=== PATIENT | male | born 1950 | race Caucasian/White ===

== ENCOUNTER 2020-08-05 08:59 | Observation (INO) | payer MEDICARE ==
[~2020-08-05] VITALS: Ht 182.9 cm; Wt 120.1 kg
[2020-08-05 08:35] VITALS: BP 103/72
[2020-08-05] MEDS ORDERED: TEST100V2 IM (09:01)
[2020-08-05] MEDS ORDERED: LEVO0.5P PO (09:01)
[2020-08-05] MEDS ORDERED: CABE0.5T PO (09:01)
[2020-08-05] MEDS ORDERED: LORazepam 2 MG/ML, 1ML IVPush PRN (09:30)
[2020-08-05] MEDS ORDERED: PROMETHAZINE 25 MG SUPP PR PRN (09:30)
[2020-08-05] MEDS ORDERED: hydrALAzine 20 MG/ML, 1ML IV PRN (09:30)
[2020-08-05] MEDS ORDERED: PROMETHAZINE 25 MG/ML, 1ML IVPush PRN (09:30)
[2020-08-05] MEDS ORDERED: ONDANSETRON 2MG/ML, 2ML IVPush PRN (09:30)
[2020-08-05] MEDS ORDERED: LABETALOL 5MG/ML, 20ML IV PRN (09:30)
[2020-08-05] MEDS ORDERED: HYDROmorphone 1 MG/ML, 1ML INJ IVPush PRN (09:30)
[2020-08-05] MEDS ORDERED: ACETAMINOPHEN 325 MG TABLET PO PRN (09:30)
[2020-08-05] MEDS ORDERED: METHOCARBAMOL 1,000 MG in DEXTROSE 5% 100 ML IV PRN (09:30)
[2020-08-05] MEDS ORDERED: FENTANYL PF 100 MCG/2ML ONE ×3 (09:58→12:16)
[2020-08-05] MEDS ORDERED: NEOSTIGMINE 1 MG/ML, 10ML ONE (10:50)
[2020-08-05] MEDS ORDERED: GLYCOPYRROLATE 0.2MG/1ML, 5ML ONE (10:50)
[2020-08-05] MEDS ORDERED: CEFAZOLIN 1,000 MG ONE (10:50)
[2020-08-05] MEDS ORDERED: ONDANSETRON 2MG/ML, 2ML ONE (10:50)
[2020-08-05] MEDS ORDERED: PROPOFOL 10 MG/ML, 20ML ONE (10:50)
[2020-08-05] MEDS ORDERED: SUCCINYLCHOLINE 20 MG/ML, 10ML ONE (10:50)
[2020-08-05] MEDS ORDERED: ROCURONIUM 10MG/ML,5ML ONE (10:50)
[2020-08-05] MEDS ORDERED: DEXAMETHASONE 4 MG/ML, 1ML ONE (10:50)
[2020-08-05] MEDS ORDERED: EPHEDRINE 50 MG/ML, 1ML ONE (10:51)
[2020-08-05] MEDS ORDERED: LIDOCAINE 4%, 4 ML SYR/CANN TP ONE (10:54)
[2020-08-05] MEDS ORDERED: ONDANSETRON 2MG/ML, 2ML IV PRN (11:30)
[2020-08-05] MEDS: OXYcodone 5 MG/5 ML ORAL.SOL UDC PO PRN ×2 (12:00→12:35)
[2020-08-05] MEDS ORDERED: ACETAMINOPHEN 650 MG/20.3 ML UDC ONE (12:02)
[2020-08-05] MEDS ORDERED: OXYcodone 5 MG/5 ML ORAL.SOL UDC ONE ×2 (12:02→12:33)
[2020-08-05] MEDS ORDERED: ACETAMINOPHEN 325 MG TABLET ONE (12:03)
[2020-08-05] MEDS: FENTANYL PF 100 MCG/2ML IV PRN ×2 (12:15→12:25)
[2020-08-05] MEDS ORDERED: LORazepam 2 MG/ML, 1ML ONE (12:27)
[2020-08-05] MEDS ORDERED: HYDROmorphone 1 MG/ML, 1ML INJ ONE (12:53)
[2020-08-05] MEDS ORDERED: PHEN-418 PO (14:03)
[2020-08-05] MEDS ORDERED: HYDR-3240 PO (14:03)
[2020-08-05] MEDS: HYDROcodone/APAP 5/325 TABLET PO PRN ×2 (14:19→20:03)
[2020-08-05 14:22] VITALS: BP 143/87
[2020-08-05] MEDS: PHENAZOPYRIDINE 200 MG TABLET PO SCH ×2 (16:23→20:03)
[2020-08-05] MEDS: TAMSULOSIN 0.4 MG CAP.ER.24H PO SCH (16:24)
[2020-08-05] MEDS ORDERED: OPIUM/BELLADONNA SUPP.RECT 16.2-60 MG PR PRN ×2 (16:30→21:30)
[2020-08-05 20:15] VITALS: BP 130/79
[2020-08-05] MEDS ORDERED: HYDROmorphone 1 MG/ML, 1ML INJ IV PRN (21:30)
[2020-08-05] MEDS: D5%-0.45NACL+KCL 20MEQ 1,000 ML IV SCH (22:57)
[2020-08-06 00:04] VITALS: BP 125/77
[2020-08-06] MEDS: HYDROcodone/APAP 5/325 TABLET PO PRN ×4 (02:06→16:43)
[2020-08-06 04:41] VITALS: BP 101/61
[2020-08-06] MEDS ORDERED: LEVOTHYROXINE 137 MCG TABLET PO SCH (06:00)
[2020-08-06 08:07] VITALS: BP 110/74
[2020-08-06] MEDS: PHENAZOPYRIDINE 200 MG TABLET PO SCH ×2 (08:14→16:43)
[2020-08-06] MEDS: TAMSULOSIN 0.4 MG CAP.ER.24H PO SCH (08:14)
[2020-08-06] MEDS: D5%-0.45NACL+KCL 20MEQ 1,000 ML IV SCH ×2 (09:04→17:30)
[2020-08-06] MEDS ORDERED: TAMS-11 PO (09:18)
[2020-08-06 13:20] VITALS: BP 105/65
[2020-08-06] MEDS ORDERED: TAMSULOSIN 0.4 MG CAP.ER.24H PO ONE (17:30)
[2020-08-21] MEDS ORDERED: LEVO137T3 PO (18:13)
[2020-08-23] MEDS ORDERED: CABE0.5T PO (16:24)
[2020-08-23] MEDS ORDERED: TEST200V3 INJ (16:24)
[2020-08-29] MEDS ORDERED: ERTA1VIA4 IV (11:12)
[2020-08-29] MEDS ORDERED: TAMS-11 PO (11:12)
== END 2020-08-06 18:35 | disposition home or self-care (01) ==
LOC: OR 08:59 → 4NE 09:18 → OR 21:15 → 4NE 21:30
PROVIDERS: ADMIT Urology; ATTEND Urology
DX: N20.2 Calculus of kidney with calculus of ureter (principal); Z20.828 Contact with and (suspected) exposure to other viral communicable diseases; N13.30 Unspecified hydronephrosis; N28.9 Disorder of kidney and ureter, unspecified; E29.1 Testicular hypofunction; N40.1 Benign prostatic hyperplasia with lower urinary tract symptoms; I44.7 Left bundle-branch block, unspecified; Z79.899 Other long term (current) drug therapy; Z85.850 Personal history of malignant neoplasm of thyroid; Z85.828 Personal history of other malignant neoplasm of skin; Z87.442 Personal history of urinary calculi
CPT/HCPCS: 52356; 76000; 82360; 87635; 88300; 93005; 96360; 96361; C1769; C2617; G0378; J0690; J1100; J1170; J2060; J2405; J2704; J2710; J3010; J3480; J0330

== ENCOUNTER → 2020-09-14 | Outpatient (CLI) | payer MEDICARE ==
[~2020-09-14] MED LIST: CABE0.5T PO; ERTA1VIA4 IV; HYDR-3240 PO; LEVO0.5P PO; LEVO137T3 PO; PHEN-418 PO; TAMS-11 PO; TEST100V2 IM; TEST200V3 INJ
== END | disposition home or self-care (01) ==
LOC: STAR 12:41
PROVIDERS: ATTEND Anesthesiology
DX: Z20.828 Contact with and (suspected) exposure to other viral communicable diseases (principal)
CPT/HCPCS: 87635

== ENCOUNTER 2020-09-18 12:49 | Day surgery (SDC) | payer MEDICARE ==
[~2020-09-18] VITALS: Ht 182.9 cm; Wt 108.1 kg
[~2020-09-18 12:49] MED LIST changes: +FENTANYL PF 250 MCG/5ML ONE; +HYDR-1067 PO; -HYDR-3240 PO
[2020-09-18] MEDS ORDERED: LACTATED RINGERS 1,000 ML IV SCH (13:00)
[2020-09-18] MEDS ORDERED: CHLORHEXIDINE 15 ML UDC ONE (13:12)
[2020-09-18 13:22] VITALS: BP 102/72
[2020-09-18] MEDS ORDERED: METOCLOPRAMIDE 5 MG/ML, 2ML IVPush PRN (13:30)
[2020-09-18] MEDS ORDERED: HYDROmorphone 1 MG/ML, 1ML INJ IVPush PRN (13:30)
[2020-09-18] MEDS ORDERED: HALOPERIDOL 5 MG/ML IV PRN (13:30)
[2020-09-18] MEDS ORDERED: OXYcodone 5 MG/5 ML ORAL.SOL UDC PO PRN (13:30)
[2020-09-18] MEDS ORDERED: DIAZEPAM 5 MG/ML, 2ML IVPush PRN (13:30)
[2020-09-18] MEDS ORDERED: ACETAMINOPHEN 325 MG TABLET PO PRN (13:30)
[2020-09-18] MEDS ORDERED: ONDANSETRON 2MG/ML, 2ML IVPush PRN (13:30)
[2020-09-18] MEDS ORDERED: hydrALAzine 20 MG/ML, 1ML IV PRN (13:30)
[2020-09-18] MEDS ORDERED: LABETALOL 5MG/ML, 20ML IV PRN (13:30)
[2020-09-18] MEDS ORDERED: FENTANYL PF 100 MCG/2ML IV PRN (13:30)
[2020-09-18] MEDS ORDERED: EPHEDRINE 50 MG/ML, 1ML IVPush PRN (13:30)
[2020-09-18] MEDS ORDERED: PROMETHAZINE 12.5 MG SUPP PR PRN (13:30)
[2020-09-18] MEDS ORDERED: CHLORHEXIDINE 15 ML UDC MM ONE (13:30)
[2020-09-18] MEDS ORDERED: METOPROLOL 1 MG/ML, 5ML IV PRN (13:30)
[2020-09-18] MEDS ORDERED: DEXAMETHASONE 4 MG/ML, 1ML ONE (13:44)
[2020-09-18] MEDS ORDERED: ONDANSETRON 2MG/ML, 2ML ONE (13:44)
[2020-09-18] MEDS ORDERED: PHENYLEPHRINE 10 MG/ML ONE (13:44)
[2020-09-18] MEDS ORDERED: PROPOFOL 10 MG/ML, 20ML ONE (13:44)
[2020-09-18] MEDS ORDERED: ERTAPENEM 1 GM in SODIUM CHLORIDE 0.9% 50 ML IV SCH (14:00)
== END 2020-09-18 17:15 | disposition home or self-care (01) ==
LOC: OUT 12:49
PROVIDERS: ATTEND Urology
DX: N20.1 Calculus of ureter (principal); N30.80 Other cystitis without hematuria; E03.9 Hypothyroidism, unspecified; Z79.890 Hormone replacement therapy; Z79.899 Other long term (current) drug therapy; Z87.442 Personal history of urinary calculi; Z88.5 Allergy status to narcotic agent
CPT/HCPCS: 52356; 74018; 82360; 93005; C1769; C2617; J1100; J2370; J2405; J2704; J3010; 76000

== ENCOUNTER 2020-12-13 08:04 | Day surgery (SDC) | payer MEDICARE ==
[~2020-12-13] VITALS: Ht 182.9 cm; Wt 108.7 kg
[~2020-12-13 08:04] MED LIST changes: -FENTANYL PF 250 MCG/5ML ONE; -HYDR-1067 PO; +HYDR-2214 PO
[2020-12-13] MEDS ORDERED: LACTATED RINGERS 1,000 ML IV SCH (09:00)
[2020-12-13] MEDS ORDERED: CHLORHEXIDINE 15 ML UDC PO ONE (09:00)
[2020-12-13 09:03] VITALS: BP 133/71
[2020-12-13] MEDS ORDERED: MIDAZOLAM 1 MG/ML, 2ML ONE (09:44)
[2020-12-13] MEDS ORDERED: FENTANYL PF 250 MCG/5ML ONE (09:44)
[2020-12-13] MEDS ORDERED: PHENYLEPHRINE 10 MG/ML ONE (10:22)
[2020-12-13] MEDS ORDERED: PROPOFOL 10 MG/ML, 20ML ONE (10:22)
[2020-12-13] MEDS ORDERED: ONDANSETRON 2MG/ML, 2ML ONE (10:22)
[2020-12-13] MEDS ORDERED: CEFAZOLIN 1,000 MG ONE (10:22)
[2020-12-13] MEDS ORDERED: GLYCOPYRROLATE 0.2MG/1ML, 5ML ONE (10:22)
[2020-12-13] MEDS ORDERED: EPHEDRINE 50 MG/ML, 1ML ONE (10:22)
[2020-12-13] MEDS ORDERED: OMNIPAQUE 350 MG/ML, 50 ML BOTTLE ONE (10:47)
[2020-12-13] MEDS ORDERED: hydrALAzine 20 MG/ML, 1ML IV PRN (11:00)
[2020-12-13] MEDS ORDERED: ACETAMINOPHEN 325 MG TABLET PO PRN (11:00)
[2020-12-13] MEDS ORDERED: OXYcodone 5 MG/5 ML ORAL.SOL UDC PO PRN (11:00)
[2020-12-13] MEDS ORDERED: ONDANSETRON 2MG/ML, 2ML IVPush PRN (11:00)
[2020-12-13] MEDS ORDERED: FENTANYL PF 100 MCG/2ML IV PRN (11:00)
[2020-12-13] MEDS ORDERED: LABETALOL 5MG/ML, 20ML IV PRN (11:00)
[2020-12-13] MEDS ORDERED: HYDROmorphone 1 MG/ML, 1ML INJ IVPush PRN (11:00)
[2020-12-13] MEDS ORDERED: METOPROLOL 1 MG/ML, 5ML IV PRN (11:00)
[2020-12-13] MEDS ORDERED: PROMETHAZINE 25 MG/ML, 1ML IVPush PRN (11:00)
[2020-12-13] MEDS ORDERED: HALOPERIDOL 5 MG/ML IV PRN (11:00)
[2020-12-13] MEDS ORDERED: EPHEDRINE 50 MG/ML, 1ML IVPush PRN (11:00)
[2020-12-13] MEDS ORDERED: METOCLOPRAMIDE 5 MG/ML, 2ML IVPush PRN (11:00)
[2020-12-13] MEDS ORDERED: ALBUTEROL SULFATE 2.5 MG/3 ML NPPB PRN (11:00)
[2020-12-13] MEDS ORDERED: DIPHENHYDRAMINE 50 MG/ML, 1ML IVPush PRN (11:00)
== END 2020-12-13 14:20 | disposition home or self-care (01) ==
LOC: OUT 08:04
PROVIDERS: ATTEND Urology
DX: N13.1 Hydronephrosis with ureteral stricture, not elsewhere classified (principal); N18.9 Chronic kidney disease, unspecified; E03.9 Hypothyroidism, unspecified; Z20.822 Contact with and (suspected) exposure to COVID-19; Z87.442 Personal history of urinary calculi; Z79.899 Other long term (current) drug therapy; Z88.5 Allergy status to narcotic agent
CPT/HCPCS: 52332; 52344; 74420; 93005; C1726; C1758; C1769; C2617; J2250; J3010; J7120; Q9967; U0003; J0690; J2405; J2704; J2370